=== PATIENT | female | born 1975 | race Hispanic/Latino ===

== ENCOUNTER 2024-04-26 07:17 | Emergency (ER) | payer MEDICAID, OTHER ==
[2024-04-26] MEDS: Lactated Ringers 1,000 ML IV SCH ×2 (08:59→11:08)
[2024-04-26] MEDS: Ondansetron 4 MG/2 ML SDV IVPUSH ONE (09:00)
[2024-04-26] MEDS: LORazepam 2 MG/ML SDV IVPUSH ONE ×3 (09:02→14:28)
[2024-04-26 09:03] LABS: BASOPHILS ABSOLUTE AUTO 0.1 K/mm3 (0.0-0.2); BASOPHILS PERCENT AUTO 1.3 % (0.0-1.0); EOSINOPHILS ABSOLUTE AUTO 0.1 K/mm3 (0.0-0.4); EOSINOPHILS PERCENT AUTO 1.3 % (0.0-6.0); HEMATOCRIT 39.5 % (37.0-47.0); IMMATURE GRAN ABSOLUTE AUTO 0.01 K/mm3 (0.00-0.05); IMMATURE GRAN PERCENT AUTO 0.3 % (0.0-0.4); LYMPHOCYTES ABSOLUTE AUTO 1.1 K/mm3 (1.0-4.8); LYMPHOCYTES PERCENT AUTO 28.7 % (24.0-44.0); MEAN CORPUSCULAR HEMOGLOBIN 32.4 pg (28.0-32.0); MEAN CORPUSCULAR HGB CONC 35.4 g/dl (32.0-36.0); MEAN CORPUSCULAR VOLUME 91.4 fl (83.0-99.0); MONOCYTES ABSOLUTE AUTO 0.3 K/mm3 (0.0-0.8); NEUTROPHILS ABSOLUTE AUTO 2.3 K/mm3 (1.8-7.7); NEUTROPHILS PERCENT AUTO 60.4 % (41.0-71.0); PLATELET COUNT,PLT 77 K/mm3 (150-400); RED BLOOD CELL COUNT 4.32 M/mm3 (4.10-5.30); WHITE BLOOD CELL COUNT,WBC 3.87 K/mm3 (3.9-11.3)
[2024-04-26] MEDS: Sodium Chloride 0.9% 10 ML Syringe FLUSH PRN (09:07)
[2024-04-26 09:25] LABS: ALBUMIN 3.8 g/dl (3.4-5.0); ANION GAP 18.5 (5-15); BILIRUBIN TOTAL 1.1 mg/dL (0.2-1.0); BUN/CREATININE RATIO 11.4 (14-18); CALCIUM 7.7 mg/dL (8.5-10.1); CREATININE 0.7 mg/dL (0.55-1.02); EST CRCL DRUG DOSING (CG) 99.15 mL/min; ETHANOL BLOOD MEDICAL 0.1 gm% (0.00); MAGNESIUM 1.1 mg/dL (1.8-2.4); PROTEIN TOTAL,TP 7.8 g/dl (6.4-8.2)
[2024-04-26 09:37] LABS: SLIDE REVIEW ABNORMAL SMEAR
[2024-04-26 09:42] LABS: POTASSIUM,K 2.5 mEq/L (3.5-5.1)
[2024-04-26] MEDS: Metoclopramide 10 MG/2 ML SDV IVPUSH ONE (10:55)
[2024-04-26 10:56] LABS: BARBITURATE SCREEN,URINE NEGATIVE (CUTOFF=200); BENZODIAZEPINES SCREEN,URINE NEGATIVE (CUTOFF=150); BUPRENORPHINE SCREEN,URINE NEGATIVE (CUTOFF=10); METHADONE SCREEN, URINE NEGATIVE (CUTOFF=200); METHAMPHETAMINES SCREEN, URINE NEGATIVE (CUTOFF=500); OXYCODONE SCREEN,URINE NEGATIVE (CUT0FF=100); THC SCREEN,URINE 20 NG/ML NEGATIVE (CUTOFF=50)
[2024-04-26 10:57] LABS: AMPHETAMINES SCREEN, URINE NEGATIVE (CUTOFF=500)
[2024-04-26] MEDS: Magnesium Sulfate/Water Premix 2 GM/50 ML BAG IV ONE (11:01)
[2024-04-26] MEDS: Potassium Chloride 10 MEQ in Premix Bag 1 BAG IV SCH (11:06)
[2024-04-26] MEDS: Potassium Chloride 20 MEQ Tab.ER PO ONE (12:06)
== END 2024-04-26 14:59 | disposition home or self-care (01) ==
LOC: JD.ED 07:17
DX: F10.930 Alcohol use, unspecified with withdrawal, uncomplicated (principal); Z88.2 Allergy status to sulfonamides; Z88.1 Allergy status to other antibiotic agents; Z88.0 Allergy status to penicillin
CPT/HCPCS: 36415; 71045; 80053; 80306; 80307; 83735; 84484; 85025; 93005; 96361; 96365; 96366; 96368; 96375; 96376; 99285; A9270; J2060; J2405; J2765; J3475; J3480; J3490; J7120; 93010; 99284